=== PATIENT | male | born 1975 | race Two or more races ===

== ENCOUNTER 2017-05-29 16:52 | Emergency (ER) | payer MEDICAID, OTHER ==
[~2017-05-29] VITALS: Ht 180.3 cm; Wt 100.0 kg
[2017-05-29] MEDS ORDERED: ondansetron/PF 4mg/2ml inj IV ONE (17:10)
[2017-05-29] MEDS ORDERED: normal saline 1000ML IV soln IVB ONE ×2 (17:10→18:50)
[2017-05-29] MEDS ORDERED: morphine 4 MG/ML inj SYRINge IV ONE ×2 (17:30→18:50)
[2017-05-29 17:34] LABS: BASOPHILS # (AUTO) 0.2 X10'3 (0-0.2); BASOPHILS % (AUTO) 1.5 % (0-1); EOSINOPHILS # (AUTO) 0.2 X10'3 (0-0.9); EOSINOPHILS % (AUTO) 1.3 % (0-6); HEMATOCRIT 43.7 % (42.0-52.0); HEMOGLOBIN 14.8 g/dl (14.0-17.9); LYMPHOCYTES # (AUTO) 1.3 X10'3 (1.1-4.8); LYMPHOCYTES % (AUTO) 8.7 % (21-51); MEAN CORPUSCULAR HEMOGLOBIN 28.2 PG (27.0-31.0); MEAN CORPUSCULAR HGB CONC 33.8 % (33.0-36.5); MEAN CORPUSCULAR VOLUME 83.4 FL (78-98); MEAN PLATELET VOLUME 8.1 FL (7.4-10.4); MONOCYTES # (AUTO) 0.5 X10'3 (0-0.9); MONOCYTES % (AUTO) 3.5 % (2-12); NEUTROPHILS # (AUTO) 12.5 X10'3 (1.8-7.7); PLATELET COUNT 317 X10'3 (140-440); RED BLOOD COUNT 5.24 X10'6 (4.70-6.10); RED CELL DISTRIBUTION WIDTH 13.7 % (11.5-14.5); WHITE BLOOD COUNT 14.7 X10'3 (4.5-11.0)
[2017-05-29 17:38] LABS: CLARITY,URINE CLEAR (Clear); COLOR,URINE YELLOW (Yellow); GLUCOSE, URINE NEGATIVE (Neg); KETONES,URINE NEGATIVE (Neg); LEUKOCYTE ESTERASE ,URINE NEGATIVE (Neg); NITRITES, URINE NEGATIVE (Neg); OCCULT BLOOD,URINE TRACE-INTACT (Neg); PROTEIN,URINE TRACE mg/dl (Neg)
[2017-05-29 17:44] LABS: UA COLLECTION TYPE CLN CATCH MIDSTREAM
[2017-05-29 17:46] LABS: BACTERIA,URINE NONE SEEN /HPF (Neg); SQUAMOUS EPITHELIAL CELL,UR FEW /LPF (FEW); WBC,URINE 0-4 /HPF (0-4)
[2017-05-29 17:52] LABS: ALANINE AMINOTRANSFERASE 42 U/L (12-78); ALBUMIN 3.9 G/DL (3.4-5.0); ALBUMIN/GLOBULIN RATIO 0.8 (1.1-1.5); ALKALINE PHOSPHATASE 69 IU/L (46-116); ANION GAP 11 (8-16); ASPARTATE AMINO TRANSFERASE 18 U/L (10-37); BILIRUBIN,TOTAL 0.4 MG/DL (0.1-1.0); BLOOD UREA NITROGEN 16 MG/DL (7-18); BUN/CREATININE RATIO 10.3 (5.4-32.0); CALCIUM 9.8 MG/DL (8.5-10.1); CHLORIDE 107 MMOL/L (99-107); CREATININE 1.55 MG/DL (0.60-1.10); GLUCOSE 135 MG/DL (70-104); LIPASE 89 U/L (73-393); POTASSIUM 4.1 MMOL/L (3.5-5.1); SODIUM 144 MMOL/L (135-145); TOTAL CARBON DIOXIDE 26.4 MMOL/L (24-32); TOTAL PROTEIN 8.7 G/DL (6.4-8.2); eGFR 49 ML/MIN
[2017-05-29] MEDS ORDERED: CIPR-259 PO (19:09)
[2017-05-29] MEDS ORDERED: FLO0.4C PO (19:09)
[2017-05-29] MEDS ORDERED: ONDA4TAB9 PO (19:09)
[2017-05-29] MEDS ORDERED: NAPR-56 PO (19:09)
[2017-05-29] MEDS ORDERED: HYDR-569 PO (19:09)
[2017-05-29] MEDS ORDERED: ketorolac trometh. 30mg/ml inj. IV ONE (19:10)
[2017-05-29] MEDS ORDERED: ciprofloxacin lact 400MG/200ML 200 ML IV ONE (19:10)
[2017-05-29] MEDS ORDERED: tamsulosin 0.4mg capsule PO ONE (19:25)
[2017-05-29] MEDS ORDERED: tamsulosin 0.4mg capsule PO SCH (21:00)
[2017-05-29 21:30] VITALS: BP 118/73
== END 2017-05-29 21:38 | disposition home or self-care (01) ==
LOC: ER 16:53
DX: K57.92 Diverticulitis of intestine, part unspecified, without perforation or abscess without bleeding (principal); N20.0 Calculus of kidney; F12.10 Cannabis abuse, uncomplicated; Z79.899 Other long term (current) drug therapy
CPT/HCPCS: 36415; 71045; 74176; 80053; 81001; 83690; 85025; 96361; 96365; 96375; 96376; 99285; J0744; J1885; J2270; J2405; J7030